=== PATIENT | female | born 1935 | race Caucasian/White ===

== ENCOUNTER 2019-10-23 11:07 | Inpatient (IN) | payer MEDICARE ==
[~2019-10-23] VITALS: Ht 165.1 cm; Wt 61.3 kg
[~2019-10-23 11:07] MED LIST: ATEN50TA PO
[2019-10-23] MEDS ORDERED: ondansetron/PF 4mg/2ml inj IV ONE (11:50)
[2019-10-23] MEDS ORDERED: normal saline 1000ML IV soln IV ONE (11:50)
[2019-10-23] MEDS ORDERED: pantoprazole IV 80 MG in normal saline 100ml IV soln 100 ML IV ONE (11:50)
--- NOTE | 2019-10-23 12:03 | NUR ---
jm gonzalez "son" [phone] .
[2019-10-23] MEDS ORDERED: pantoprazole 40 MG vial IV ONE (12:05)
[2019-10-23 12:17] LABS: BASOPHILS # (AUTO) 0.1 X10'3 (0-0.2); BASOPHILS % (AUTO) 1.1 % (0-1); EOSINOPHILS % (AUTO) 0.7 % (0-6); HEMATOCRIT 39.5 % (35.0-45.0); HEMOGLOBIN 13.2 g/dl (12.0-16.0); LYMPHOCYTES # (AUTO) 1.1 X10'3 (1.1-4.8); LYMPHOCYTES % (AUTO) 15.5 % (21-51); MEAN CORPUSCULAR HEMOGLOBIN 31.1 PG (27.0-31.0); MEAN CORPUSCULAR HGB CONC 33.5 g/dL (33.0-36.5); MEAN CORPUSCULAR VOLUME 92.7 FL (78-98); MEAN PLATELET VOLUME 7.5 FL (7.4-10.4); MONOCYTES # (AUTO) 0.8 X10'3 (0-0.9); MONOCYTES % (AUTO) 11.5 % (2-12); NEUTROPHILS # (AUTO) 4.9 X10'3 (1.8-7.7); NEUTROPHILS % (AUTO) 71.2 % (42-75); PLATELET COUNT 215 X10'3 (140-440); RED BLOOD COUNT 4.26 X10'6 (4.20-5.60); RED CELL DISTRIBUTION WIDTH 14.1 % (11.5-14.5); WHITE BLOOD COUNT 6.9 X10'3 (4.5-11.0)
[2019-10-23 12:32] LABS: ALANINE AMINOTRANSFERASE 203 U/L (12-78); ALBUMIN 3.1 G/DL (3.4-5.0); ALBUMIN/GLOBULIN RATIO 0.8 (1.1-1.5); ALKALINE PHOSPHATASE 162 IU/L (46-116); ANION GAP 7 (8-16); ASPARTATE AMINO TRANSFERASE 129 U/L (10-37); BILIRUBIN,TOTAL 1.5 MG/DL (0.1-1.0); BLOOD UREA NITROGEN 9 MG/DL (7-18); BUN/CREATININE RATIO 9.9 (6.6-38.0); CALCIUM 8.7 MG/DL (8.5-10.1); CHLORIDE 100 MMOL/L (99-107); CREATININE 0.91 MG/DL (0.40-0.90); GLUCOSE 126 MG/DL (70-104); POTASSIUM 3.5 MMOL/L (3.5-5.1); SODIUM 135 MMOL/L (135-145); TOTAL CARBON DIOXIDE 28.5 MMOL/L (24-32); TOTAL PROTEIN 7.2 G/DL (6.4-8.2); eGFR 59 ML/MIN
--- NOTE | 2019-10-23 12:34 | NUR ---
to ct scan via wheelchair in stable condition with final inspector
[2019-10-23 14:20] LABS: CLARITY,URINE CLEAR (Clear); COLOR,URINE YELLOW (Yellow); GLUCOSE, URINE NEGATIVE (Neg); KETONES,URINE NEGATIVE (Neg); LEUKOCYTE ESTERASE ,URINE NEGATIVE (Neg); NITRITES, URINE NEGATIVE (Neg); OCCULT BLOOD,URINE NEGATIVE (Neg); PH,URINE 6.5 (4.8-8.0); PROTEIN,URINE NEGATIVE (Neg); UA COLLECTION TYPE CLN CATCH MIDSTREAM
[2019-10-23] MEDS ORDERED: mag hydrox/Alum hydrox/simeth 30ml oral suspension PO PRN (14:50)
[2019-10-23] MEDS ORDERED: ondansetron/PF 4mg/2ml inj IV PRN (14:50)
[2019-10-23] MEDS ORDERED: acetaminophen 325mg tablet PO PRN (14:50)
[2019-10-23] MEDS ORDERED: magnesium hydroxide 30ml (MOM) UD suspension PO PRN (14:50)
[2019-10-23 15:35] VITALS: BP 189/68
[2019-10-23] MEDS ORDERED: LIDOcaine Viscous 15ml cup ONE (15:40)
[2019-10-23] MEDS ORDERED: MIDAZolam 5mg/5ml vial ONE (15:40)
[2019-10-23] MEDS ORDERED: fentaNYL/PF 50MCG/1 ML 2ML syringe ONE (15:40)
[2019-10-23 15:43] LABS: LIPASE 121 U/L (73-393)
--- NOTE | 2019-10-23 16:22 | NUR ---
Patient in room ED 10. I have received report from Silverio LOMELI in ER and had the opportunity to ask questions and assume patient care. Patient is currently in GI lab for MRCP. BP is reported as being 172/79.
[2019-10-23 16:23] VITALS: BP 168/77
[2019-10-23 16:33] VITALS: BP 125/83
[2019-10-23 16:33] LABS: OCCULT BLOOD STOOL POSITIVE (Neg)
[2019-10-23 16:43] VITALS: BP 178/84
--- NOTE | 2019-10-23 17:15 | NUR ---
Patient on the unit, new IV tubing and IVF hung.
[2019-10-23] MEDS: famotidine/PF IV inj 40 MG in normal saline 100ml IV soln 96 ML IV SCH ×2 (17:49→18:54)
[2019-10-23] MEDS: normal saline 1000ml 1,000 ML IV SCH (17:50)
[2019-10-23 18:00] VITALS: BP 163/63
--- NOTE | 2019-10-23 18:24 | NUR ---
Patient in room ORTHO 4011. I have received report from Mark LOMELI and had the opportunity to ask questions and assume patient care.
[2019-10-23] MEDS ORDERED: CARV25TA PO (18:36)
[2019-10-23] MEDS ORDERED: MINE50OI TOP (18:36)
[2019-10-23] MEDS ORDERED: VITA-268 PO (18:38)
[2019-10-23] MEDS ORDERED: RED600TA PO (18:40)
[2019-10-23] MEDS ORDERED: LUTE1CAP5 PO (18:43)
[2019-10-23] MEDS ORDERED: MOME17SP BOTHNARES (18:45)
[2019-10-23] MEDS ORDERED: MYCOL30CR TP (18:46)
[2019-10-23] MEDS ORDERED: ASPI81TA52 PO (18:47)
[2019-10-23] MEDS ORDERED: OMEG1CAP PO (18:48)
[2019-10-23] MEDS ORDERED: LACT1CAP75 PO (18:49)
[2019-10-23] MEDS ORDERED: POLY1DRO2 OP (18:51)
[2019-10-23] MEDS ORDERED: MULT-691 PO (18:51)
[2019-10-23] MEDS ORDERED: MELA3CAP PO (18:52)
[2019-10-23] MEDS ORDERED: ASCO-139 PO (18:56)
--- NOTE | 2019-10-23 19:03 | NUR ---
ok to give son Devin information per patient. son states hi is "POA". phone number [phone]
[2019-10-23] MEDS: diatr meglu/diatrizoate 30ml oral sol.-(3 dose) bottle PO SCH (21:43)
[2019-10-23 22:00] VITALS: BP 194/86
--- NOTE | 2019-10-23 22:11 | NUR ---
pt 4011B Shelly. BP 194/86 hr 58. pt takes 25 coreg BID. not re-ordered. npo for CT r/o onofre in am. can we start coreg? pt said HR norm 50-65. 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 (we will need to change HR parameters for holding coreg on order)
[2019-10-24 00:26] VITALS: BP 149/59
[2019-10-24] MEDS: normal saline 1000ml 1,000 ML IV SCH (00:47)
[2019-10-24 06:00] VITALS: BP 152/60
[2019-10-24 06:15] LABS: BASOPHILS % (AUTO) 0.7 % (0-1); EOSINOPHILS # (AUTO) 0.1 X10'3 (0-0.9); EOSINOPHILS % (AUTO) 2.8 % (0-6); HEMATOCRIT 33.3 % (35.0-45.0); HEMOGLOBIN 11.3 g/dl (12.0-16.0); LYMPHOCYTES # (AUTO) 1.4 X10'3 (1.1-4.8); LYMPHOCYTES % (AUTO) 28.4 % (21-51); MEAN CORPUSCULAR HEMOGLOBIN 31.3 PG (27.0-31.0); MEAN CORPUSCULAR HGB CONC 33.9 g/dL (33.0-36.5); MEAN CORPUSCULAR VOLUME 92.3 FL (78-98); MEAN PLATELET VOLUME 7.4 FL (7.4-10.4); MONOCYTES # (AUTO) 0.6 X10'3 (0-0.9); MONOCYTES % (AUTO) 12.7 % (2-12); NEUTROPHILS # (AUTO) 2.8 X10'3 (1.8-7.7); NEUTROPHILS % (AUTO) 55.4 % (42-75); PLATELET COUNT 183 X10'3 (140-440); RED CELL DISTRIBUTION WIDTH 14.1 % (11.5-14.5); WHITE BLOOD COUNT 5.1 X10'3 (4.5-11.0)
--- NOTE | 2019-10-24 06:17 | NUR ---
reported to days. bedside report given.
[2019-10-24 06:23] LABS: ALBUMIN 2.6 G/DL (3.4-5.0); ANION GAP 6 (8-16); BLOOD UREA NITROGEN 7 MG/DL (7-18); BUN/CREATININE RATIO 10.6 (6.6-38.0); CHLORIDE 105 MMOL/L (99-107); CREATININE 0.66 MG/DL (0.40-0.90); GLUCOSE 92 MG/DL (70-104); POTASSIUM 3.3 MMOL/L (3.5-5.1); SODIUM 139 MMOL/L (135-145); TOTAL CARBON DIOXIDE 28.5 MMOL/L (24-32); eGFR 85 ML/MIN
--- NOTE | 2019-10-24 07:01 | NUR ---
Patient in room ORTHO 4011. I have received report from ARMANI Gardner and had the opportunity to ask questions and assume patient care.
[2019-10-24] MEDS: diatr meglu/diatrizoate 30ml oral sol.-(3 dose) bottle PO SCH ×2 (07:46→10:34)
[2019-10-24] MEDS ORDERED: atenolol 25mg tablet PO SCH (08:00)
[2019-10-24] MEDS: famotidine/PF IV inj 40 MG in normal saline 100ml IV soln 96 ML IV SCH (08:24)
[2019-10-24 10:00] VITALS: BP 169/79
[2019-10-24] MEDS ORDERED: iohexol 300mg/ml 100ml inj. ONE (10:35)
[2019-10-24] MEDS ORDERED: PANT-47 PO (10:40)
--- NOTE | 2019-10-25 15:43 | NUR ---
Case Management DC follow up: s/p:Upper GI bleed; cholelithiasis. Pt Reports:"doing quite well". Denies: Acute/continuous CP, emergent SOB, resp distress, orthopnea, dyspnea, dysphagia, N/V, weakness, vertigo, syncope episodes, orthostatic hypotension, THOMAS, blurry vision, FAST, bladder pain, dysuria, polyuria, hematuria, retention, abd pain/distention, hematochezia, melena. Verbalizes understanding of s/s that warrant 10/26/ER visit for further evaluation. Verbalizes understanding of Rx, understanding of why prescribed; continues/resumes current Rx, taking as ordered. Pt states there was an "error in paperwork" so came in today 10/25/19 & spoke to RN to update her medication list stating it is wrong and RN took copy of pt med list & stated she would take care of it. pt Stated gave ER nurse current list of meds 10/23/19, was never updated. No ase r/t polypharmacy. Current list may be from pt last visit in 2016. Acknowledges need to schedule/keep follow up appts w/PCP/Graeme, awaiting call back. Pt was un-aware needed to call Dr Godoy to schedule follow up in 2 wks. Pt verbalizes compliance w/DC aftercare. Needs met, questions answered at DC, no further questions/concerns at this time.
== END 2019-10-24 13:10 | disposition home or self-care (01) | DRG 379 ==
LOC: ER 11:07 → ED HOLD 14:47 → ORTHO 4S 17:00
PROVIDERS: ADMIT Family Medicine; ATTEND Family Medicine
PROC: 0DJ08ZZ Inspection of Upper Intestinal Tract, Via Natural or Artificial Opening Endoscopic (ICD-10-PCS; principal; 2019-10-23)
PROC: BW211ZZ Computerized Tomography (CT Scan) of Abdomen and Pelvis using Low Osmolar Contrast (ICD-10-PCS; 2019-10-24)
DX: K92.1 Melena (principal); I10 Essential (primary) hypertension; K80.20 Calculus of gallbladder without cholecystitis without obstruction; K57.10 Diverticulosis of small intestine without perforation or abscess without bleeding; K21.9 Gastro-esophageal reflux disease without esophagitis; R74.0 Nonspecific elevation of levels of transaminase and lactic acid dehydrogenase [LDH]; M19.90 Unspecified osteoarthritis, unspecified site; Z87.11 Personal history of peptic ulcer disease; Z88.8 Allergy status to other drugs, medicaments and biological substances
CPT/HCPCS: 36415; 43235; 71045; 74176; 74177; 76700; 80048; 80053; 81003; 82140; 82272; 83690; 85025; 85610; 86885; 86900; 86901; 87081; 93005; 96361; 96374; 96375; 99152; 99153; 99285; A4620; C9113; G0378; J2250; J2405; J3010; J3490; J7030; Q9963; Q9967

== ENCOUNTER 2019-12-12 08:24 | Outpatient (CLI) | payer MEDICARE ==
[~2019-12-12] VITALS: Ht 165.1 cm; Wt 59.0 kg
[2019-12-12] VITALS (7 sets, daily range): BP systolic 146–195; BP diastolic 59–79
[~2019-12-12 08:24] MED LIST changes: +ASCO-139 PO; -ATEN50TA PO; +CARV25TA PO; +LACT1CAP75 PO; +LUTE1CAP5 PO; +MELA3CAP PO; +MINE50OI TOP; +MOME17SP BOTHNARES; +MULT-691 PO; +MYCOL30CR TP; +OMEG1CAP PO; +PANT-47 PO; +POLY1DRO2 OP; +RED600TA PO; +VITA-268 PO
[2019-12-12] MEDS ORDERED: aminophylline 250mg/10ml inj. IV PRN (09:30)
[2019-12-12] MEDS ORDERED: nitroGLYCERIN 0.4mg SUBLingual tab SL PRN (09:30)
[2019-12-12] MEDS ORDERED: normal saline 500ml IV soln 500 ML IV ONE (09:30)
[2019-12-12] MEDS ORDERED: regadenoson 0.4mg/5ml syringe IV ONE (09:30)
== END 2019-12-12 23:59 | disposition home or self-care (01) ==
LOC: RAD 08:24
PROVIDERS: ATTEND Internal Medicine Cardiovascular Disease
DX: I25.10 Atherosclerotic heart disease of native coronary artery without angina pectoris (principal); R06.02 Shortness of breath
CPT/HCPCS: 78452; 93017; A9500; J2785; J7040

== ENCOUNTER 2020-05-16 11:25 | Emergency (ER) | payer MEDICARE ==
[~2020-05-16] VITALS: Ht 165.1 cm; Wt 57.6 kg
[2020-05-16] MEDS ORDERED: morphine 4 MG/ML inj SYRINge IV ONE (12:15)
[2020-05-16] MEDS ORDERED: ondansetron/PF 4mg/2ml inj IV ONE (12:15)
[2020-05-16] MEDS ORDERED: ketorolac tromethamine 15mg/ml inj. IV ONE (12:15)
[2020-05-16 12:52] LABS: ALANINE AMINOTRANSFERASE 16 U/L (12-78); ALBUMIN 3.6 G/DL (3.4-5.0); ALKALINE PHOSPHATASE 61 IU/L (46-116); ANION GAP 10 (8-16); ASPARTATE AMINO TRANSFERASE 15 U/L (10-37); BLOOD UREA NITROGEN 15 MG/DL (7-18); BUN/CREATININE RATIO 22.7 (6.6-38.0); CALCIUM 8.7 MG/DL (8.5-10.1); CHLORIDE 97 MMOL/L (99-107); CREATININE 0.66 MG/DL (0.40-0.90); GLUCOSE 113 MG/DL (70-104); LIPASE 157 U/L (73-393); SODIUM 133 MMOL/L (135-145); TOTAL CARBON DIOXIDE 26.4 MMOL/L (24-32); TOTAL PROTEIN 7.3 G/DL (6.4-8.2); eGFR 85 ML/MIN
[2020-05-16 12:55] LABS: BASOPHILS % (AUTO) 0.5 % (0-1); EOSINOPHILS % (AUTO) 0.6 % (0-6); HEMATOCRIT 36.7 % (35.0-45.0); HEMOGLOBIN 12.5 g/dl (12.0-16.0); LYMPHOCYTES % (AUTO) 15.3 % (21-51); MEAN CORPUSCULAR HEMOGLOBIN 32.4 PG (27.0-31.0); MEAN CORPUSCULAR VOLUME 95.4 FL (78-98); MEAN PLATELET VOLUME 7.8 FL (7.4-10.4); MONOCYTES # (AUTO) 0.7 X10'3 (0-0.9); MONOCYTES % (AUTO) 11.3 % (2-12); NEUTROPHILS # (AUTO) 4.7 X10'3 (1.8-7.7); NEUTROPHILS % (AUTO) 72.3 % (42-75); PLATELET COUNT 218 X10'3 (140-440); RED BLOOD COUNT 3.85 X10'6 (4.20-5.60); RED CELL DISTRIBUTION WIDTH 13.7 % (11.5-14.5); WHITE BLOOD COUNT 6.5 X10'3 (4.5-11.0)
[2020-05-16 13:40] LABS: CLARITY,URINE SLIGHTLY CLOUDY (Clear); COLOR,URINE STRAW (Yellow); GLUCOSE, URINE NEGATIVE (Neg); KETONES,URINE 15 mg/dl (Neg); LEUKOCYTE ESTERASE ,URINE NEGATIVE (Neg); NITRITES, URINE NEGATIVE (Neg); OCCULT BLOOD,URINE NEGATIVE (Neg); PH,URINE 6.5 (4.8-8.0); PROTEIN,URINE NEGATIVE (Neg); UROBILINOGEN,URINE 0.2 E.U/dL (0.2-1.0)
[2020-05-16 13:52] LABS: UA COLLECTION TYPE STRAIGHT CATH
[2020-05-16 13:54] LABS: SQUAMOUS EPITHELIAL CELL,UR FEW /LPF (FEW)
[2020-05-16 13:55] LABS: BACTERIA,URINE FEW /HPF (Neg); RBC,URINE 0-2 /HPF (0-2); WBC,URINE 0-4 /HPF (0-4)
[2020-05-16] MEDS ORDERED: fentaNYL/PF 50MCG/1 ML 2ML syringe IV ONE (14:30)
--- NOTE | 2020-05-16 15:22 | NUR ---
Zelalem Beltran [phone]
[2020-05-16 16:25] VITALS: BP 166/79
== END 2020-05-16 16:24 | disposition home or self-care (01) ==
LOC: ER 11:26
DX: N13.30 Unspecified hydronephrosis (principal); N64.4 Mastodynia; G89.29 Other chronic pain; I10 Essential (primary) hypertension; M19.90 Unspecified osteoarthritis, unspecified site; K21.9 Gastro-esophageal reflux disease without esophagitis; R30.0 Dysuria; Z88.8 Allergy status to other drugs, medicaments and biological substances; Z88.0 Allergy status to penicillin; Z79.899 Other long term (current) drug therapy
CPT/HCPCS: 36415; 74176; 80053; 81001; 83605; 83690; 84484; 85025; 85610; 93005; 96374; 96375; 99285; J1885; J2270; J2405; J3010; 99284

== ENCOUNTER 2020-05-17 10:21 | Emergency (ER) | payer MEDICARE ==
[~2020-05-17] VITALS: Ht 165.1 cm; Wt 60.0 kg
[2020-05-17] MEDS ORDERED: ketorolac tromethamine 15mg/ml inj. IV ONE (11:35)
[2020-05-17 11:48] LABS: BASOPHILS % (AUTO) 0.5 % (0-1); EOSINOPHILS % (AUTO) 0.5 % (0-6); HEMOGLOBIN 13.2 g/dl (12.0-16.0); LYMPHOCYTES # (AUTO) 0.8 X10'3 (1.1-4.8); LYMPHOCYTES % (AUTO) 11.6 % (21-51); MEAN CORPUSCULAR HEMOGLOBIN 32.7 PG (27.0-31.0); MEAN CORPUSCULAR HGB CONC 33.7 g/dL (33.0-36.5); MEAN PLATELET VOLUME 8.2 FL (7.4-10.4); MONOCYTES # (AUTO) 0.8 X10'3 (0-0.9); MONOCYTES % (AUTO) 11.4 % (2-12); NEUTROPHILS # (AUTO) 5.5 X10'3 (1.8-7.7); PLATELET COUNT 229 X10'3 (140-440); RED BLOOD COUNT 4.02 X10'6 (4.20-5.60); RED CELL DISTRIBUTION WIDTH 13.8 % (11.5-14.5); WHITE BLOOD COUNT 7.3 X10'3 (4.5-11.0)
[2020-05-17 12:09] LABS: ALANINE AMINOTRANSFERASE 19 U/L (12-78); BILIRUBIN,TOTAL 0.7 MG/DL (0.1-1.0); BLOOD UREA NITROGEN 24 MG/DL (7-18); BUN/CREATININE RATIO 25.3 (6.6-38.0); CHLORIDE 99 MMOL/L (99-107); CREATININE 0.95 MG/DL (0.40-0.90); GLUCOSE 117 MG/DL (70-104); SODIUM 136 MMOL/L (135-145); eGFR 56 ML/MIN
[2020-05-17 12:16] LABS: ALBUMIN 3.7 G/DL (3.4-5.0); ALKALINE PHOSPHATASE 65 IU/L (46-116); ANION GAP 9 (8-16); ASPARTATE AMINO TRANSFERASE 15 U/L (10-37); LIPASE 138 U/L (73-393); TOTAL CARBON DIOXIDE 28.5 MMOL/L (24-32); TOTAL PROTEIN 7.5 G/DL (6.4-8.2)
[2020-05-17 13:21] VITALS: BP 135/80
== END 2020-05-17 13:25 | disposition home or self-care (01) ==
LOC: ER 10:22
DX: R10.84 Generalized abdominal pain (principal); I10 Essential (primary) hypertension; K21.9 Gastro-esophageal reflux disease without esophagitis; M19.90 Unspecified osteoarthritis, unspecified site; Z88.8 Allergy status to other drugs, medicaments and biological substances; Z88.0 Allergy status to penicillin; Z88.1 Allergy status to other antibiotic agents; Z79.899 Other long term (current) drug therapy
CPT/HCPCS: 36415; 76700; 80053; 83690; 85025; 96374; 99284; J1885

== ENCOUNTER 2020-05-25 11:07 | Emergency (ER) | payer MEDICARE ==
[~2020-05-25] VITALS: Ht 165.1 cm; Wt 59.0 kg
[2020-05-25 11:41] VITALS: BP 127/66
[2020-05-25] MEDS ORDERED: ketorolac tromethamine 15mg/ml inj. IM ONE (13:05)
[2020-05-25] MEDS ORDERED: ACYC-129 PO (13:14)
== END 2020-05-25 13:49 | disposition home or self-care (01) ==
LOC: ER 11:08
DX: B02.9 Zoster without complications (principal); I10 Essential (primary) hypertension; K21.9 Gastro-esophageal reflux disease without esophagitis; M19.90 Unspecified osteoarthritis, unspecified site; Z88.8 Allergy status to other drugs, medicaments and biological substances; Z88.0 Allergy status to penicillin; Z79.899 Other long term (current) drug therapy
CPT/HCPCS: 96372; 99283; J1885

== ENCOUNTER 2020-06-19 15:21 | Emergency (ER) | payer MEDICARE ==
[~2020-06-19] VITALS: Ht 165.1 cm; Wt 59.3 kg
[2020-06-19] MEDS ORDERED: TETanus/Pertussis (Acell)/Diphther VAC/PF (Tdap-Adult) 0.5ml syringe IMVAC ONE (16:50)
[2020-06-19] MEDS ORDERED: LIDOcaine/epinephrine/tetracaine TOPICAL sol 3 ML syringe TOP ONE (16:50)
[2020-06-19 18:06] VITALS: BP 186/92
--- NOTE | 2020-06-19 18:13 | NUR ---
Dr. Sterling aware of BP, ok to dc patient.
== END 2020-06-19 18:19 | disposition home or self-care (01) ==
LOC: ER 15:21
DX: S51.812A Laceration without foreign body of left forearm, initial encounter (principal); I10 Essential (primary) hypertension; K21.9 Gastro-esophageal reflux disease without esophagitis; M19.90 Unspecified osteoarthritis, unspecified site; Z20.3 Contact with and (suspected) exposure to rabies; Z88.8 Allergy status to other drugs, medicaments and biological substances; Z88.0 Allergy status to penicillin; Z88.1 Allergy status to other antibiotic agents; Z79.899 Other long term (current) drug therapy; X58.XXXA Exposure to other specified factors, initial encounter; Y93.89 Activity, other specified; Y92.89 Other specified places as the place of occurrence of the external cause; Y99.8 Other external cause status
CPT/HCPCS: 90471; 90715; 99284

== ENCOUNTER 2020-12-05 13:46 | Emergency (ER) | payer MEDICARE ==
[~2020-12-05] VITALS: Ht 165.1 cm; Wt 64.0 kg
[~2020-12-05 13:46] MED LIST changes: -OMEG1CAP PO; +OMEG1CAP61 PO
[2020-12-05] MEDS ORDERED: diazepam inj 5 MG/ML inj. IV ONE (13:55)
[2020-12-05] MEDS ORDERED: morphine 10mg/ml inj. IM ONE (14:10)
[2020-12-05] MEDS ORDERED: morphine 4 MG/ML inj SYRINge IV ONE (14:15)
[2020-12-05 14:46] LABS: BASOPHILS % (AUTO) 0.1 % (0-1); EOSINOPHILS % (AUTO) 0 % (0-6); HEMATOCRIT 35.8 % (35.0-45.0); HEMOGLOBIN 12.1 g/dl (12.0-16.0); LYMPHOCYTES # (AUTO) 0.7 X10'3 (1.1-4.8); LYMPHOCYTES % (AUTO) 4.8 % (21-51); MEAN CORPUSCULAR HEMOGLOBIN 32.9 PG (27.0-31.0); MEAN CORPUSCULAR HGB CONC 33.9 g/dL (33.0-36.5); MEAN CORPUSCULAR VOLUME 96.9 FL (78-98); MEAN PLATELET VOLUME 8.1 FL (7.4-10.4); MONOCYTES # (AUTO) 1.5 X10'3 (0-0.9); MONOCYTES % (AUTO) 11.2 % (2-12); NEUTROPHILS # (AUTO) 11.5 X10'3 (1.8-7.7); NEUTROPHILS % (AUTO) 83.9 % (42-75); PLATELET COUNT 230 X10'3 (140-440); RED BLOOD COUNT 3.69 X10'6 (4.20-5.60); RED CELL DISTRIBUTION WIDTH 13.8 % (11.5-14.5); WHITE BLOOD COUNT 13.7 X10'3 (4.5-11.0)
[2020-12-05] MEDS ORDERED: aspirin 81mg tab.chew PO ONE (15:05)
[2020-12-05 15:22] LABS: TOTAL CELLS COUNTED 100
[2020-12-05 15:23] LABS: PLATELET ESTIMATE NORMAL
[2020-12-05] MEDS ORDERED: morphine 2 MG/ML inj. syringe IV PRN (15:45)
[2020-12-05 16:21] LABS: ALANINE AMINOTRANSFERASE 29 U/L (12-78); ALBUMIN 3.1 G/DL (3.4-5.0); ALBUMIN/GLOBULIN RATIO 0.8 (1.1-1.5); ALKALINE PHOSPHATASE 60 IU/L (46-116); ANION GAP 14 (8-16); ASPARTATE AMINO TRANSFERASE 38 U/L (10-37); BILIRUBIN,TOTAL 1.4 MG/DL (0.1-1.0); BLOOD UREA NITROGEN 16 MG/DL (7-18); BUN/CREATININE RATIO 27.1 (6.6-38.0); CALCIUM 8.2 MG/DL (8.5-10.1); CHLORIDE 103 MMOL/L (99-107); CREATININE 0.59 MG/DL (0.40-0.90); GLUCOSE 132 MG/DL (70-104); POTASSIUM 3.8 MMOL/L (3.5-5.1); SODIUM 142 MMOL/L (135-145); TOTAL CARBON DIOXIDE 25.5 MMOL/L (24-32); TOTAL PROTEIN 6.9 G/DL (6.4-8.2); eGFR > 90 ML/MIN
[2020-12-05 16:28] LABS: MAGNESIUM 1.9 MG/DL (1.5-2.4)
[2020-12-05 16:32] LABS: PARTIAL THROMBOPLASTIN TIME 23 SECONDS (22-32)
[2020-12-05] MEDS ORDERED: LIDOcaine 1% 30ml preserv. free vial IJ ONE (18:20)
[2020-12-05] MEDS ORDERED: BUPIVAcaine/PF 7.5mg/ml (0.75%) 10ml vial IJ ONE (18:20)
[2020-12-05] MEDS ORDERED: BUPIVAcaine 0.5% inj/PF 30 ml vial IJ ONE (18:35)
[2020-12-05] MEDS ORDERED: fentaNYL/PF 50MCG/1 ML 2ML syringe IV ONE ×2 (18:40→19:00)
[2020-12-05] MEDS: midazolam 1 mg/ML 2ml injection IV ONE ×2 (19:07→19:12)
[2020-12-05 19:16] VITALS: BP 108/61
== END 2020-12-06 08:06 ==
LOC: ER 13:47
DX: S42.292A Other displaced fracture of upper end of left humerus, initial encounter for closed fracture (principal); S01.81XA Laceration without foreign body of other part of head, initial encounter; S06.5X9A Traumatic subdural hemorrhage with loss of consciousness of unspecified duration, initial encounter; Z20.822 Contact with and (suspected) exposure to COVID-19; I25.10 Atherosclerotic heart disease of native coronary artery without angina pectoris; E78.00 Pure hypercholesterolemia, unspecified; I10 Essential (primary) hypertension; J44.9 Chronic obstructive pulmonary disease, unspecified; K21.9 Gastro-esophageal reflux disease without esophagitis; M19.90 Unspecified osteoarthritis, unspecified site; G89.29 Other chronic pain; Z87.440 Personal history of urinary (tract) infections; Z60.2 Problems related to living alone; Z88.8 Allergy status to other drugs, medicaments and biological substances; Z88.0 Allergy status to penicillin; Z79.899 Other long term (current) drug therapy; W18.30XA Fall on same level, unspecified, initial encounter; Y93.89 Activity, other specified; Y92.89 Other specified places as the place of occurrence of the external cause; Y99.8 Other external cause status
CPT/HCPCS: 36415; 51702; 70450; 71045; 72040; 72125; 73030; 80053; 83735; 83880; 84484; 85007; 85025; 85610; 85730; 87635; 93005; 96374; 96375; 99291; 99292; C9803; J2001; J2270; J3010; J3360; J3490; 12013; J2250